=== PATIENT | male | born 1995 | race Caucasian/White ===

== ENCOUNTER 2016-05-06 08:50 | Emergency (ER) | payer MEDICAID ==
[~2016-05-06] VITALS: Ht 167.6 cm; Wt 70.5 kg
[2016-05-06] MEDS ORDERED: LIDOCAINE HCL BUFFERED 1% 20 ML VIAL INJ ONE (09:30)
[2016-05-06 10:11] VITALS: BP 127/63
== END 2016-05-06 10:17 | disposition home or self-care (01) ==
LOC: EMS 08:51
DX: L60.8 Other nail disorders (principal); S60.142A Contusion of left ring finger with damage to nail, initial encounter; X58.XXXA Exposure to other specified factors, initial encounter; Y93.89 Activity, other specified; Y92.9 Unspecified place or not applicable; Y99.9 Unspecified external cause status
CPT/HCPCS: 29130; 99283; J3490

== ENCOUNTER 2019-08-14 16:18 | Emergency (ER) | payer MEDICAID, OTHER ==
[~2019-08-14] VITALS: Ht 167.6 cm; Wt 75.0 kg
[2019-08-14 16:30] VITALS: BP 114/56
== END 2019-08-14 17:15 | disposition home or self-care (01) ==
LOC: EMS 16:18
DX: R51 Headache (principal); R19.7 Diarrhea, unspecified; Z20.828 Contact with and (suspected) exposure to other viral communicable diseases
CPT/HCPCS: 99283; U0003